=== PATIENT | male | born 1960 | race Caucasian/White ===

== ENCOUNTER 2016-10-30 16:28 | Emergency (ER) | payer BC, OTHER ==
[2016-10-30 17:01] VITALS: BP 129/60
--- NOTE | 2016-10-30 17:17 | ERNOTE ---
Medical Problem HPI - General Chief Complaint: General Assessment Time Seen by Provider: 10/30/16 17:06 Source: patient Exam Limitations: no limitations - Immun/Allergies/Home Medications Immunizations: IMMUNIZATION HX Immunizations Up to Date Yes History of Influenza Vaccine Yes Hx Pneumococcal Vaccination Yes Allergies/Adverse Reactions: Allergies No Known Allergies Allergy (Verified 10/30/16 17:02) Home Medications: HOME MEDICATIONS Acetaminophen [Tylenol Extra Strength] 1,000 mg PO PRN PRN 05/07/12 [Last Taken 05/07/12 15:00] Naproxen [Naprosyn] 500 mg PO BID #60 tablet 10/30/16 [Last Taken Unknown] Penicillin V Potassium [Pen-Vee K] 500 mg PO Q8H #30 tab 10/30/16 [Last Taken Unknown] - History of Present History Narrative: Patient presents with tenderness over the right elbow epicondyle and an infected tooth in the left lower. He received both problems as mild to moderate intensity and somewhat chronic in nature. Timing: constant Severity: mild Review of Systems - Review of Systems Constitutional: Present: See HPI EYE: Present: no symptoms reported ENT: Present: other - tooth decay Respiratory: Present: no symptoms reported Cardiology: Present: no symptoms reported Gastrointestinal/Abdominal: Present: no symptoms reported Genitourinary: Present: no symptoms reported Musculoskeletal: Present: See HPI, joint pain Skin: Present: no symptoms reported Neurological: Present: no symptoms reported Endocrine: Present: no symptoms reported Hematologic/Lymphatic: Present: no symptoms reported Psych: Present: no symptoms reported - Patient's Past Medical History Patient History - Medical: No pertinent hx Patient History - Cardiac/Respiratory: No pertinent hx Patient History - Cancer: No Hx of Cancer Patient History - Other: None - Social History Living Situations: home Psych History: No pertinent hx Smoking Status: Former smoker Alcohol Use: none Drug Use: none - Immunizations Immunizations Up to Date: Yes Hx Pneumococcal Vaccination: Yes History of Influenza Vaccine: Yes Physical Exam - Physical Exam General Appearance: Present: wd/wn, alert, mild distress Head Exam: Present: normal inspection, no evidence of injury Eye Exam: Normal inspection: bilateral, PERRL: bilateral Ears, Nose, Throat: Present: normal ENT inspection, normal pharynx, other - marked tooth decay Neck: Present: normal inspection, nontender Respiratory: Present: no respiratory distress, normal breath sounds, no accessory muscle use, chest nontender, lungs clear Cardiovascular/Chest: Present: regular rate, rhythm, no murmur, normal peripheral pulses Gastrointestinal/Abdominal: Present: normal bowel sounds, nontender, nondistended, soft, no organomegaly Rectal Exam: Present: deferred Back Exam: Present: normal inspection, normal range of motion Extremity Exam: Present: normal range of motion, no edema, bony tenderness - over the right epicondyle. Neurological Exam: Present: alert, oriented, normal mood/affect Skin Exam: Present: normal color, warm/dry Lymphatic Exam: Present: no adenopathy ED Progress - Vital Signs Patient's Vital Signs:: I have reviewed the patient's vital signs. Vital Signs: Vital Signs 10/30/16 16:50 Temperature 36.8 C Pulse Rate 51 L Respiratory 15 Rate Blood Pressure 129/60 O2 Sat by Pulse 97 Oximetry - Progress/Reassessment Chief Complaint: General Assessment Plan - Plan Plan: Patient has a right epicondylitis secondary to repetitive use and fairly significant tooth decay in the left lower. Patient will be started on antibiotics, NSAIDs for the epicondylitis and he will call his dentist and his doctor for follow-up. Departure - Departure Clinical Impression: Dental caries Epicondylitis, lateral (tennis elbow) Qualifiers: Laterality: right Qualified Code(s): M77.11 - Lateral epicondylitis, right elbow Disposition: Home self-care Condition: Good Instructions: Dental Caries, [id number], Tennis Elbow, [id number]
== END 2016-10-30 17:21 | disposition home or self-care (01) ==
LOC: ER 16:28
DX: M77.11 Lateral epicondylitis, right elbow (principal); K02.9 Dental caries, unspecified; Z87.891 Personal history of nicotine dependence

== ENCOUNTER 2016-12-25 13:11 | Emergency (ER) | payer BC ==
[2016-12-25] MEDS ORDERED: KETOROLAC TROMETHAMINE 60 MG/2 ML VIAL IM ONE ×2 (13:38→14:03)
[2016-12-25] MEDS ORDERED: ORPHENADRINE CITRATE 30 MG/ML VIAL IM ONE (13:38)
[2016-12-25 13:58] LABS: Urine Bilirubin Negative (NEGATIVE); Urine Blood Negative /ul (NEGATIVE); Urine Ketone Negative (NEGATIVE); Urine Nitrite Negative (NEGATIVE); Urine Protein Negative (NEGATIVE); Urine Urobilinogen Normal (NORMAL)
[2016-12-25] MEDS ORDERED: ORPHENADRINE CITRATE 30 MG/ML VIAL ONE (14:03)
[2016-12-25 14:05] LABS: Urine Appearance Clear; Urine Bacteria None Seen; Urine Color Yellow; Urine RBC None Seen /hpf (0-5); Urine WBC None Seen /hpf (0-5)
--- NOTE | 2016-12-25 14:30 | ERNOTE ---
Back Pain ER HPI Presenting Symptoms: other - patient complains of back pain over the last 3-4 days. He states he has a history of back pain however this appears to be somewhat worse than normal Time Seen by Provider: 12/25/16 13:35 Source: patient Immunizations: IMMUNIZATION HX Immunizations Up to Date Yes History of Influenza Vaccine Yes Hx Pneumococcal Vaccination Yes Allergies/Adverse Reactions: Allergies No Known Allergies Allergy (Verified 12/25/16 13:28) Home Medications: HOME MEDICATIONS Cyclobenzaprine HCl [Flexeril] 10 mg PO TID PRN #30 tab 12/25/16 [Last Taken Unknown] Naproxen [Naprosyn] 500 mg PO BID #60 tablet 12/25/16 [Last Taken Unknown] traMADol HCL [Ultram] 50 mg PO QID PRN #20 tablet 12/25/16 [Last Taken Unknown] Timing: Reports: constant Quality/Severity: Reports: moderate, severe Location of pain: Reports: lower back Recent Injury?: Reports: no Possible Precipitating Factor: Reports: turning/bending Modifying Factors - (Worsens): Reports: movement flexion Associated Symptoms: Reports: none Review of Systems - Review of Systems Constitutional: Present: See HPI EYE: Present: no symptoms reported ENT: Present: no symptoms reported Respiratory: Present: no symptoms reported Cardiology: Present: no symptoms reported Gastrointestinal/Abdominal: Present: no symptoms reported Genitourinary: Present: no symptoms reported Musculoskeletal: Present: See HPI, back pain, muscle stiffness Skin: Present: no symptoms reported Neurological: Present: no symptoms reported Endocrine: Present: no symptoms reported Hematologic/Lymphatic: Present: no symptoms reported Psych: Present: no symptoms reported - Patient's Past Medical History Patient History - Medical: No pertinent hx Patient History - Cardiac/Respiratory: No pertinent hx Patient History - Cancer: No Hx of Cancer Patient History - Surgical Procedures: Other Patient History - Other: None - Social History Living Situations: home Psych History: No pertinent hx Smoking Status: Former smoker Alcohol Use: none Drug Use: none - Immunizations Immunizations Up to Date: Yes Hx Pneumococcal Vaccination: Yes History of Influenza Vaccine: Yes Physical Exam - Physical Exam General Appearance: Present: wd/wn, alert, moderate distress Head Exam: Present: normal inspection Eye Exam: Normal inspection: bilateral, PERRL: bilateral Ears, Nose, Throat: Present: normal ENT inspection, H, normal pharynx Neck: Present: normal inspection, nontender Respiratory: Present: no respiratory distress, normal breath sounds, no accessory muscle use, chest nontender, lungs clear Cardiovascular/Chest: Present: regular rate, rhythm, no murmur, normal peripheral pulses Gastrointestinal/Abdominal: Present: normal bowel sounds, nontender, nondistended, soft, no organomegaly Rectal Exam: Present: deferred Back Exam: Present: decreased range of motion, muscle spasm Extremity Exam: Present: normal inspection, non-tender, no edema, normal range of motion Neurological Exam: Present: alert, oriented, normal mood/affect Skin Exam: Present: normal color, warm/dry Lymphatic Exam: Present: no adenopathy ED Progress - Results and Orders Patient's Lab Results:: I have reviewed the patient's lab results. - Vital Signs Patient's Vital Signs:: I have reviewed the patient's vital signs. Vital Signs: Vital Signs 12/25/16 13:23 Temperature 36.9 C Pulse Rate 58 L Respiratory 16 Rate Blood Pressure 116/73 O2 Sat by Pulse 95 Oximetry - X-Ray X-Ray #1 X-Ray: lumbosacral Interpretation: Reviewed by me - Progress/Reassessment Chief Complaint: Back Pain Progress:: Improved Plan - Plan Plan: Patient feels better after the Toradol and Norflex and he'll be given a prescription for Naprosyn, Flexeril and a brief course of tramadol for breakthrough pain. He agrees to follow up with his family physician as needed Departure Clinical Impression: Muscle spasm Back pain Qualifiers: Back pain location: low back pain Chronicity: acute Back pain laterality: right Sciatica presence: without sciatica Qualified Code(s): M54.5 - Low back pain - Departure Disposition: Home self-care Condition: Good Instructions: Back Pain, Adult, Muscle Cramps and Spasms, [id number] Prescriptions: Cyclobenzaprine HCl [Flexeril] 10 mg PO TID PRN #30 tab PRN Reason: MUSCLE SPASMS Naproxen [Naprosyn] 500 mg PO BID #60 tablet traMADol HCL [Ultram] 50 mg PO QID PRN #20 tablet PRN Reason: Moderate Pain
[2016-12-25 14:40] VITALS: BP 109/64
== END 2016-12-25 14:40 | disposition home or self-care (01) ==
LOC: ER 13:11
DX: M62.830 Muscle spasm of back (principal); M54.5 Low back pain

== ENCOUNTER 2017-02-09 13:46 | Emergency (ER) | payer BC ==
--- NOTE | 2017-02-09 14:46 | ERNOTE ---
Upper Extremity HPI - General Extremities Pain Location: shoulder: left Time Seen by Provider: 02/09/17 14:03 Source: patient Exam Limitations: no limitations - Immun/Allergies/Home Medications Immunizations: IMMUNIZATION HX Immunizations Up to Date Yes History of Influenza Vaccine No Hx Pneumococcal Vaccination No Allergies/Adverse Reactions: Allergies Allergy/AdvReac Type Severity Reaction Status Date / Time No Known Allergies Allergy Verified 02/09/17 13:56 Home Medications: HOME MEDICATIONS NK [No Home Medication] 02/09/17 [Last Taken Unknown] - History of Present Illness Narrative: Patient noticed a swollen area on his left shoulder about a week and a half ago , that wasn't there before, no injury, no significant pain, no other symptoms. Over the holidays his family was concerned about it and so he is coming to have it checked out. He PCP retired recently Review of Systems - Review of Systems Constitutional: Absent: recent illness, fever ENT: Absent: nose congestion, sore throat Respiratory: Absent: shortness of breath Cardiology: Absent: chest pain Gastrointestinal/Abdominal: Absent: nausea, abdominal pain Genitourinary: Present: no symptoms reported Musculoskeletal: Present: See HPI Skin: Absent: rash Neurological: Absent: weakness, numbness - Patient's Past Medical History Patient History - Medical: No pertinent hx Patient History - Cardiac/Respiratory: No pertinent hx Patient History - Cancer: No Hx of Cancer Patient History - Surgical Procedures: Other Patient History - Other: None - Social History Living Situations: home Psych History: No pertinent hx Smoking Status: Former smoker Have you smoked in the past 12 months: Yes - Immunizations Immunizations Up to Date: Yes Hx Pneumococcal Vaccination: No History of Influenza Vaccine: No Physical Exam - Physical Exam General Appearance: Present: wd/wn, alert, no apparent distress Head Exam: Present: normal inspection Respiratory: Present: no respiratory distress, normal breath sounds, no accessory muscle use, lungs clear Cardiovascular/Chest: Present: regular rate, rhythm, no murmur Extremity Exam: Present: normal except - - left shoulder normal ROM, strength, soft mobile two cm subcutaneous nodule just anterior to ACJ Neurological Exam: Present: alert, oriented, normal mood/affect, no motor/ sensory deficits Skin Exam: Present: normal color, warm/dry ED Progress - Vital Signs Patient's Vital Signs:: I have reviewed the patient's vital signs. Vital Signs: Vital Signs 02/09/17 13:53 Temperature 37.1 C Pulse Rate 84 Respiratory 16 Rate Blood Pressure 112/69 O2 Sat by Pulse 96 Oximetry - Progress/Reassessment Chief Complaint: Shoulder Injury/Pain Departure Clinical Impression: Soft tissue tumor - Departure Disposition: Home self-care Condition: Good Additional Instructions: this is most likely a soft tissue tumor like a lipoma. If it continues to grow call the surgical office and make an appointment to have it removed Referrals: Tima Dixon MD [Associate] -
[2017-02-09 14:51] VITALS: BP 117/51
== END 2017-02-09 14:51 | disposition home or self-care (01) ==
LOC: ER 13:46
DX: D21.12 Benign neoplasm of connective and other soft tissue of left upper limb, including shoulder (principal)

== ENCOUNTER 2017-04-24 09:24 | Day surgery (SDC) | payer BC ==
[~2017-04-24 09:24] MED LIST: RINGER'S SOLUTION,LACTATED 1,000 ML IV PRN
[2017-04-24] MEDS ORDERED: RINGER'S SOLUTION,LACTATED 1,000 ML IV ONE (10:00)
[2017-04-24] MEDS ORDERED: BUPIVACAINE HCL/EPINEPHRINE 50 ML VIAL IJ ONE ×2 (10:25)
--- NOTE | 2017-04-24 11:08 | OR ---
Operative Report - Dictated Report Narrative: Date: 04/24/2017 Preop diagnosis: 45 x 35 mm subcutaneous Lipoma left distal clavicle/acromion process Postop diagnosis: same. Procedure: Excision soft tissue tumor, 4.5 cm, left shoulder, subcutaneous Staff surgeon: Tima Dixon MD Anesthesia: local/mac EBL: minimal Specimen: Lipoma, left shoulder Description: The patient was placed in the supine position and the left shoulder region was prepped and draped in sterile fashion. A field block was performed with quarter percent Marcaine with epinephrine. An incision was carried out over this mass and electrocautery was used to carry the dissection down to the pseudocapsule. The pseudocapsule was incised with cautery. The lipoma was then dissected free of dense areolar tissue using electrocautery. Once liberated the specimen was submitted for pathologic examination. Hemostasis appeared to be adequate. The incision was closed with a subcuticular stitch of 4-0 Vicryl and sealed with Dermabond. The patient tolerated the procedure well without any apparent complications his discharge from the operating room in stable condition.
[2017-04-24 12:00] VITALS: BP 116/64
== END 2017-04-24 09:25 | disposition home or self-care (01) ==
LOC: AMB 09:24
PROVIDERS: ATTEND Specialist
PROC: 0JBF0ZZ Excision of Left Upper Arm Subcutaneous Tissue and Fascia, Open Approach (ICD-10-PCS; principal; 2017-04-24)
DX: D17.1 Benign lipomatous neoplasm of skin and subcutaneous tissue of trunk (principal); Z87.891 Personal history of nicotine dependence